=== PATIENT | female | born 1985 | race Caucasian/White ===

== ENCOUNTER 2016-05-01 21:55 | Emergency (ER) | payer MEDICAID ==
[~2016-05-01] VITALS: Ht 149.9 cm; Wt 62.3 kg
[~2016-05-01 21:55] MED LIST: CEPH500C2 PO; IBUP-2070 PO; SULF1TAB3 PO; VICOT PO
[2016-05-01 22:34] LABS: BASOPHILS # (AUTO) 0.06 K/uL (0.00-0.20); BASOPHILS % (AUTO) 0.5 % (0.0-2.0); EOSINOPHILS # (AUTO) 0.38 K/uL (0.00-0.70); EOSINOPHILS % (AUTO) 3.74 % (1.0-6.0); HEMATOCRIT 40.5 % (36-46); HEMOGLOBIN 13.9 g/dL (12.0-16.0); LYMPHOCYTES # (AUTO) 3.9 K/uL (1.0-4.8); LYMPHOCYTES % (AUTO) 37.7 % (22.0-44.0); MEAN CORPUSCULAR HEMOGLOBIN 30.9 pg (26.0-34.0); MEAN CORPUSCULAR HGB CONC 34.2 G/dL (31.0-37.0); MEAN CORPUSCULAR VOLUME 90 fL (80-100); MONOCYTES # (AUTO) 0.7 K/uL (0.1-1.0); MONOCYTES % (AUTO) 6.8 % (2.0-9.0); NEUTROPHILS # (AUTO) 5.2 K/uL (1.8-7.7); NEUTROPHILS % (AUTO) 51.2 % (40.0-70.0); PLATELET COUNT (AUTO) 298 K/uL (150-450); RED BLOOD CELL COUNT(AUTO) 4.49 MIL/uL (4.00-5.20); RED CELL DISTRIBUTION WIDTH 12.5 % (11.5-14.5); WHITE BLOOD COUNT (AUTO) 10.2 K/uL (4.5-11.0)
[2016-05-01 22:52] LABS: ANION GAP 8 mmol/L (8-16); CARBON DIOXIDE 29 mmol/L (22-29); CHLORIDE 106 mmol/L (98-107); CREATININE 0.96 mg/dL (0.60-1.30); GLOMERULAR FILTR. RATE CALC > 60 mL/min (>60); POTASSIUM 3.7 mmol/L (3.5-5.1); SODIUM SERUM 143 mmol/L (136-145); UREA NITROGEN, BLOOD 18 mg/dL (7-18)
[2016-05-01 22:56] LABS: ALANINE AMINOTRANSFERASE 32 U/L (12-78); ALBUMIN 3.7 g/dL (3.4-5.0); ASPARTATE AMINOTRANSFERASE 17 U/L (15-37); BILIRUBIN,TOTAL 0.3 mg/dL (0.1-1.0); TOTAL PROTEIN, SERUM 7.6 g/dL (6.4-8.2)
[2016-05-01 23:04] LABS: ADD UA MICROSCOPIC NO; APPEARANCE,URINE CLEAR (CLEAR); GLUCOSE, URINE (UA) NEGATIVE (NEGATIVE); KETONES,URINE NEGATIVE (NEGATIVE); LEUKOCYTE ESTERASE ,URINE NEGATIVE (NEGATIVE); OCCULT BLOOD,URINE NEGATIVE (NEGATIVE); PH,URINE 6.5 (5.0-8.0); PROTEIN,URINE NEGATIVE (NEGATIVE)
[2016-05-02] MEDS ORDERED: PROMETHAZINE HCL 25 MG/ML VIAL IM ONE (01:45)
[2016-05-02] MEDS ORDERED: MORPHINE SULFATE 4 MG/ML SYRINGE IM ONE (01:45)
[2016-05-02 06:40] VITALS: BP 117/77
[2016-05-03 22:16] LABS: GC DNA N.A. AMPLIFY Negative (Negative)
== END 2016-05-02 06:53 | disposition home or self-care (01) ==
LOC: EMS 22:03
DX: K59.00 Constipation, unspecified (principal); N76.0 Acute vaginitis
CPT/HCPCS: 36415; 74010; 80053; 81003; 83690; 84703; 85025; 87070; 87210; 87491; 87591; 96372; 99285; J2270; J2550

== ENCOUNTER 2017-08-26 04:29 | Emergency (ER) | payer MEDICAID ==
[~2017-08-26] VITALS: Ht 149.9 cm; Wt 61.8 kg
[2017-08-26 04:36] VITALS: BP 98/66
[2017-08-26] MEDS ORDERED: IBUPROFEN 800 MG TABLET PO ONE (05:00)
== END 2017-08-26 06:08 | disposition home or self-care (01) ==
LOC: EMS 04:30
DX: S90.01XA Contusion of right ankle, initial encounter (principal); S20.229A Contusion of unspecified back wall of thorax, initial encounter; S10.93XA Contusion of unspecified part of neck, initial encounter; Y04.0XXA Assault by unarmed brawl or fight, initial encounter; Y93.89 Activity, other specified; Y92.89 Other specified places as the place of occurrence of the external cause; Y99.8 Other external cause status
CPT/HCPCS: 99284

== ENCOUNTER 2019-06-19 19:15 | Emergency (ER) | payer MEDICAID ==
[~2019-06-19] VITALS: Ht 149.9 cm; Wt 63.6 kg
[2019-06-19 22:30] LABS: APPEARANCE,URINE CLOUDY (CLEAR); BILIRUBIN,URINE NEGATIVE (NEGATIVE); GLUCOSE, URINE (UA) NEGATIVE (NEGATIVE); KETONES,URINE NEGATIVE (NEGATIVE); LEUKOCYTE ESTERASE ,URINE LARGE (NEGATIVE); NITRATE,URINE NEGATIVE (NEGATIVE); OCCULT BLOOD,URINE NEGATIVE (NEGATIVE); PROTEIN,URINE POS 1+ (NEGATIVE)
[2019-06-19 22:39] LABS: BACTERIA,URINE Many /HPF (None Seen); RBC,URINE 0-2 /HPF (0-2); SQUAMOUS EPITHELIAL CELL,UR Moderate /LPF (None Seen); WBC,URINE 51-100 /HPF (0-5)
[2019-06-19 22:40] LABS: CALCIUM OXALATE CRYSTALS,UR Many /LPF (None Seen)
[2019-06-19 22:50] LABS: BASOPHILS % (AUTO) 0.7 % (0.0-2.0); EOSINOPHILS % (AUTO) 2.9 % (1.0-6.0); HEMATOCRIT 39.9 % (36-46); HEMOGLOBIN 13.3 g/dL (12.0-16.0); LYMPHOCYTES # (AUTO) 2.9 K/uL (1.0-4.8); LYMPHOCYTES % (AUTO) 32.2 % (22.0-44.0); MEAN CORPUSCULAR HEMOGLOBIN 30.6 pg (26.0-34.0); MEAN CORPUSCULAR HGB CONC 33.2 G/dL (31.0-37.0); MEAN CORPUSCULAR VOLUME 92 fL (80-100); MONOCYTES # (AUTO) 0.6 K/uL (0.1-1.0); MONOCYTES % (AUTO) 6.2 % (2.0-9.0); NEUTROPHILS # (AUTO) 5.2 K/uL (1.8-7.7); PLATELET COUNT (AUTO) 245 K/uL (150-450); RED BLOOD CELL COUNT(AUTO) 4.34 MIL/uL (4.00-5.20); RED CELL DISTRIBUTION WIDTH 13.1 % (11.5-14.5)
[2019-06-19 23:00] LABS: ANION GAP 8 mmol/L (8-16); CALCIUM, TOTAL 8.9 mg/dL (8.8-10.5); CARBON DIOXIDE 28 mmol/L (22-29); CHLORIDE 107 mmol/L (98-107); CREATININE 0.92 mg/dL (0.60-1.30); GLOMERULAR FILTR. RATE CALC > 60 mL/min (>60); GLUCOSE,RANDOM 117 mg/dL (70-110); POTASSIUM 3.2 mmol/L (3.5-5.1); SODIUM SERUM 143 mmol/L (136-145); UREA NITROGEN, BLOOD 14 mg/dL (7-18)
[2019-06-19 23:13] LABS: ALANINE AMINOTRANSFERASE 23 U/L (12-78); ALBUMIN 3.8 g/dL (3.4-5.0); ALKALINE PHOSPHATASE 68 U/L (46-116); ASPARTATE AMINOTRANSFERASE 15 U/L (15-37); BILIRUBIN,TOTAL 0.6 mg/dL (0.1-1.0); HCG,QUANTITATIVE 1 mIU/mL (0-6); TOTAL PROTEIN, SERUM 6.9 g/dL (6.4-8.2)
[2019-06-19] MEDS ORDERED: CefTRIAXone 1 GM/DEXTROSE 50 ML IV ONE (23:15)
[2019-06-19] MEDS ORDERED: KETOROLAC TROMETHAMINE 30 MG/ML VIAL IVP ONE (23:30)
[2019-06-20 00:37] VITALS: BP 118/69
== END 2019-06-20 00:46 | disposition home or self-care (01) ==
LOC: EMS 19:16
DX: N12 Tubulo-interstitial nephritis, not specified as acute or chronic (principal)
CPT/HCPCS: 36415; 80053; 81001; 84702; 85025; 87086; 96365; 96375; 99284; J0696; J1885

== ENCOUNTER 2020-08-17 22:26 | Emergency (ER) | payer MEDICAID ==
[~2020-08-17] VITALS: Ht 147.3 cm; Wt 58.2 kg
[2020-08-17 23:51] LABS: BASOPHILS % (AUTO) 0.5 % (0.0-2.0); EOSINOPHILS % (AUTO) 2.5 % (1.0-6.0); HEMATOCRIT 39.1 % (36-46); HEMOGLOBIN 13.1 g/dL (12.0-16.0); LYMPHOCYTES % (AUTO) 32.2 % (22.0-44.0); MEAN CORPUSCULAR HEMOGLOBIN 31.1 pg (26.0-34.0); MEAN CORPUSCULAR HGB CONC 33.5 G/dL (31.0-37.0); MEAN CORPUSCULAR VOLUME 93 fL (80-100); MONOCYTES # (AUTO) 0.6 K/uL (0.1-1.0); NEUTROPHILS # (AUTO) 5.4 K/uL (1.8-7.7); NEUTROPHILS % (AUTO) 57.8 % (40.0-70.0); PLATELET COUNT (AUTO) 248 K/uL (150-450); RED BLOOD CELL COUNT(AUTO) 4.22 MIL/uL (4.00-5.20); RED CELL DISTRIBUTION WIDTH 12.9 % (11.5-14.5)
[2020-08-18 02:00] VITALS: BP 124/67
== END 2020-08-18 02:00 | disposition home or self-care (01) ==
LOC: EMS 22:26
DX: O20.0 Threatened abortion (principal); Z3A.01 Less than 8 weeks gestation of pregnancy
CPT/HCPCS: 76801; 76817; 84702; 85025; 86901; 99284

== ENCOUNTER 2021-10-21 12:20 | Emergency (ER) | payer MEDICAID ==
[~2021-10-21] VITALS: Ht 147.3 cm; Wt 52.3 kg
[2021-10-21] MEDS ORDERED: PREN-217 PO (12:38)
[2021-10-21 14:23] VITALS: BP 111/72
[2021-10-21 14:42] LABS: AMPHET/METH SCREEN,URINE NEGATIVE (NEGATIVE); BARBITURATE SCREEN, URINE NEGATIVE (NEGATIVE); BENZODIAZEPINES SCREEN,URINE NEGATIVE (NEGATIVE); CANNABINOID SCREEN,URINE NEGATIVE (NEGATIVE); COCAINE SCREEN,URINE NEGATIVE (NEGATIVE); METHADONE SCREEN, URINE NEGATIVE (NEGATIVE); OPIATE SCREEN,URINE NEGATIVE (NEGATIVE); PHENCYCLIDINE SCREEN,URINE NEGATIVE (NEGATIVE)
[2021-10-21 15:06] LABS: BASOPHILS % (AUTO) 0.4 % (0.0-2.0); EOSINOPHILS % (AUTO) 0.8 % (1.0-6.0); HEMATOCRIT 36.2 % (36-46); LYMPHOCYTES % (AUTO) 12.7 % (22.0-44.0); MEAN CORPUSCULAR HEMOGLOBIN 29.3 pg (26.0-34.0); MEAN CORPUSCULAR HGB CONC 33.2 G/dL (31.0-37.0); MEAN CORPUSCULAR VOLUME 89 fL (80-100); MONOCYTES # (AUTO) 0.9 K/uL (0.1-1.0); MONOCYTES % (AUTO) 5.5 % (2.0-9.0); NEUTROPHILS # (AUTO) 12.5 K/uL (1.8-7.7); NEUTROPHILS % (AUTO) 80.6 % (40.0-70.0); PLATELET COUNT (AUTO) 289 K/uL (150-450); RED BLOOD CELL COUNT(AUTO) 4.09 MIL/uL (4.00-5.20); RED CELL DISTRIBUTION WIDTH 15.8 % (11.5-14.5)
[2021-10-21 15:17] LABS: ANION GAP 9 mmol/L (8-16); CARBON DIOXIDE 28 mmol/L (22-29); CHLORIDE 103 mmol/L (98-107); CREATININE 0.59 mg/dL (0.60-1.30); GLUCOSE,RANDOM 77 mg/dL (70-110); POTASSIUM 3.5 mmol/L (3.5-5.1); SODIUM SERUM 140 mmol/L (136-145); UREA NITROGEN, BLOOD 10 mg/dL (7-18)
[2021-10-21 15:19] LABS: GLOMERULAR FILTR. RATE CALC > 60 mL/min (>60)
[2021-10-21 15:28] LABS: ALANINE AMINOTRANSFERASE 22 U/L (12-78); ALBUMIN 3.6 g/dL (3.4-5.0); ALKALINE PHOSPHATASE 50 U/L (46-116); ASPARTATE AMINOTRANSFERASE 17 U/L (15-37); BILIRUBIN,TOTAL 0.6 mg/dL (0.1-1.0); HCG,QUANTITATIVE 9 mIU/mL (0-6); TOTAL PROTEIN, SERUM 6.8 g/dL (6.4-8.2)
== END 2021-10-21 15:57 | disposition home or self-care (01) ==
LOC: EMS 12:20
DX: O03.89 Complete or unspecified spontaneous abortion with other complications (principal); Z3A.00 Weeks of gestation of pregnancy not specified; F10.20 Alcohol dependence, uncomplicated
CPT/HCPCS: 76801; 76817; 80053; 84702; 84703; 85025; 99284